=== PATIENT | male | born 1975 | race African-American/Black ===

== ENCOUNTER 2021-12-13 15:19 | Emergency (ER) | payer OTHER ==
[~2021-12-13] VITALS: Ht 180.3 cm; Wt 120.2 kg
[2021-12-13 17:34] LABS: BILIRUBIN Negative (Negative); BLOOD Negative (Negative); CLARITY Cloudy (Clear); COLOR Orange (Yellow); GLUCOSE Negative (Negative); KETONE Negative (Negative); LEUKO ESTERASE 2+ (Negative); NITRITE Positive (Negative)
[2021-12-13 17:45] LABS: BACTERIA 2+; EPITHELIAL CELLS 0-2; WBC 31-40 wbc/hpf (0-5)
[2021-12-13 17:46] LABS: HYALINE CAST 0-2
[2021-12-13] MEDS ORDERED: CIPRO500 MG PO (18:17)
== END 2021-12-13 18:21 | disposition home or self-care (01) ==
LOC: ED 15:19
PROVIDERS: Physician Assistant
DX: S42.401A Unspecified fracture of lower end of right humerus, initial encounter for closed fracture (principal); N39.0 Urinary tract infection, site not specified; X50.1XXA Overexertion from prolonged static or awkward postures, initial encounter; Y93.89 Activity, other specified; Y92.89 Other specified places as the place of occurrence of the external cause; Y99.8 Other external cause status